=== PATIENT | male | born 1950 | race Caucasian/White ===

== ENCOUNTER 2018-07-12 21:39 | Emergency (ER) | payer OTHER, BC ==
--- NOTE | 2018-07-12 21:49 | PDOC ---
History of Present Illness - History of Present Illness Initial Comments: 07/12/18 22:53 Patient is a 67 year old male with a significant past medical history of HTN, recurrent kidney stones, type 2 diabetes, osteo arthritis, who presents to the ED with complaints of left flank pain that began yesterday morning. Patient reports left flank pain feels similar to past experiences of kidney stones. He reports being unable to urinate since this morning, stating he attempted and only a few drops of urine came out which he states has not happened before. Denies chest pain, Sob. Denies nausea, vomiting. Denies fevers, chills. Denies contact with sick individuals, out of state travelling. Denies constipation, diarrhea. Denies dysuria, hematuria. Denies trauma to affected area. Denies any other symptoms. Allergies: None Social history: No smoking. No alcohol. No illicit drugs. Surgical history: None PMD: None. Adult ROS General: No fevers or chills, no weakness, no weight loss HEENT: No change in vision. No sore throat, No ear pain Cardiovascular: No chest pain or shortness of breath Respiratory:No cough, or wheezing. Gastrointestinal: No nausea, vomiting, diarrhea or constipation, No rectal bleeding Genitourinary: +urinary retention. No dysuria, hematuria, or frequency Musculoskeletal: +Left flank pain. No joint or muscle pain or swelling Neurologic: No headache, vertigo, dizziness or loss of consciousness Psychiatric: No depression Skin: No rashes or easy bruising Endocrine: No increased thirst or abnormal weight change Allergic: No skin or latex allergy All other systems reviewed and normal Basic PE GENERAL: The patient is awake, alert, and fully oriented, in no acute distress. HEAD: Normal with no signs of trauma. EYES: Pupils equal, round and reactive to light, extraocular movements intact, sclera anicteric, conjunctiva clear. EXTREMITIES: Normal range of motion, no edema. GENITOURINARY: Palpable distended bladder. NEUROLOGICAL: Normal speech, normal gait. PSYCH: Normal mood, normal affect. SKIN: Warm, Dry, normal turgor, no rashes or lesions noted. <Arcadio Ibrahim - Last Filed: 07/12/18 22:52> - General History Source: Patient Exam Limitations: No Limitations - History of Present Illness Initial Comments: A portion of this note was documented by scribe services under my direction. I have reviewed the details of the note, within reason, and agree with the documentation with the following case summary and management plan written by me. Patient treated in the ED. Nursing notes are reviewed and incorporated into the medical decision-making. Vital signs reviewed. Medical decision making this is an 59-year-old male with right flank pain and history of renal stones in the past. Patient also is in urinary retention is not urinated since earlier this morning. Workup initiated including CBC, comp, urine, urine culture and CT scan of the abdomen and pelvis. CT scan did show some hydroureter however no stone so still may have recently passed or there was also some abnormalities of some bladder wall thickening. Patient was given a copy of his CAT scan and told it is very important that he followed up with his urologist. A Machado catheter was placed with some difficulty and the bladder was drained there was approximately 800 mL of urine in the bladder. The urinalysis did show likely mild infection however given the amount of instrumentation I also am starting patient on some Cipro and a prescription and was sent to his pharmacy first dose was given in the ED Patient discharged home with a leg bag to follow-up with his urologist 07/13/18 00:13 <Kash Fenton I - Last Filed: 07/13/18 00:15> - General Chief Complaint: Pain, Acute Stated Complaint: KIDNEY STONES/UNABLE TO URINATE Time Seen by Provider: 07/12/18 21:43 Past History <Arcadio Ibrahim - Last Filed: 07/12/18 22:52> - Past Medical History Anemia: No Asthma: No Cancer: No Cardiac Disorders: No CVA: No COPD: No CHF: No Dementia: No Diabetes: Yes (iddm) GI Disorders: No Disorders: No HTN: No Hypercholesterolemia: No Kidney Stones: Yes Liver Disease: No Seizures: No Thyroid Disease: No - Surgical History Abdominal Surgery: No Appendectomy: No Cardiac Surgery: No Cholecystectomy: No Lung Surgery: No Neurologic Surgery: No Orthopedic Surgery: No - Immunization History Immunization Up to Date: Yes - Suicide/Smoking/Psychosocial Hx Smoking History: Never smoked Have you smoked in the past 12 months: No Number of Cigarettes Smoked Daily: 0 Cigars Per Day: 0 Hx Alcohol Use: No Drug/Substance Use Hx: No Substance Use Type: None Hx Substance Use Treatment: No <Kash Fenton I - Last Filed: 07/13/18 00:15> - Past Medical History Allergies/Adverse Reactions: Allergies Allergy/AdvReac Type Severity Reaction Status Date / Time No Known Allergies Allergy Verified 07/12/18 21:45 Home Medications: Ambulatory Orders Insulin Detemir [Levemir VIAL -] 44 units SQ DAILY 07/08/13 Meloxicam 15 mg PO DAILY PRN 01/09/16 Ciprofloxacin HCl [Cipro] 500 mg PO BID #14 tablet 07/13/18 ED Treatment Course - LABORATORY CBC & Chemistry Diagram: 07/12/18 22:23 07/12/18 22:23 - ADDITIONAL ORDERS Additional order review: Laboratory Results 07/12/18 22:23 Urine Color Yellow Urine Appearance Clear Urine pH 5.0 Ur Specific [place] 1.020 Urine Protein Negative Urine Glucose (UA) 3+ H Urine Ketones Negative Urine Blood 3+ H Urine Nitrite Negative Urine Bilirubin Negative Urine Urobilinogen 0.2 Ur Leukocyte Esterase 1+ H Urine RBC 40-60 Urine WBC 5-10 Ur Epithelial Cells 1+ Urine Bacteria 1+ 07/12/18 22:23 RBC 5.29 MCV 88.0 MCHC 33.9 RDW 12.1 MPV 9.2 Neutrophils % 71.6 Lymphocytes % 20.0 Monocytes % 6.0 Eosinophils % 2.1 Basophils % 0.3 - Medications Given in the ED: ED Medications Discontinued Medications Generic Name Dose Route Start Last Admin Trade Name Freq PRN Reason Stop Dose Admin Sodium Chloride 1,000 mls @ 1,000 mls/hr 07/12/18 21:51 07/12/18 22:19 Normal Saline - IV 07/12/18 22:50 1,000 mls/hr .Q1H ONE Administration Ketorolac Tromethamine 30 mg 07/12/18 21:51 07/12/18 22:20 Toradol Injection - IVPUSH 07/12/18 21:52 30 mg ONCE ONE Administration <Arcadio Ibrahim - Last Filed: 07/12/18 22:52> - LABORATORY CBC & Chemistry Diagram: 07/12/18 22:23 07/12/18 22:23 <Kash Fenton I - Last Filed: 07/13/18 00:15> *DC/Admit/Observation/Transfer - Attestations Scribe Attestion: 07/12/18 22:53 Documentation prepared by Arcadio Ibrahim, acting as medical communication specialist for Kash Fenton MD. <Arcadio Ibrahim - Last Filed: 07/12/18 22:52> - Discharge Dispostion Decision to Admit order: No <Kash Fenton I - Last Filed: 07/13/18 00:15> Diagnosis at time of Disposition: Hydroureter, Urinary retention - Discharge Dispostion Disposition: HOME Condition at time of disposition: Stable - Prescriptions Prescriptions: Ciprofloxacin HCl [Cipro] 500 mg PO BID #14 tablet - Referrals Referrals: Jimmy Alamo MD [Staff Physician] - - Patient Instructions Additional Instructions: It is important that you leave the catheter in until you see your urologist.. Your CAT scan was negative for any kidney stones however there is evidence of a possible recently passed kidney stone. Take a copy of her CAT scan with you when you go to see the urologist as there is some abnormalities on it that the urologist should be aware of. Take Cipro 1 tablet twice a day for 7 days to prevent infection. Return to the emergency department immediately with ANY new, persistent or worsening symptoms. Continue any medications as previously prescribed by your physician. You should follow up with your primary doctor as soon as possible regarding today's emergency department visit. . Please make sure your doctor reviews the results of your emergency evaluation. Thank you for coming to the Emergency Department today for your care. It was a pleasure to see you today. Please note that your evaluation is INCOMPLETE until you follow-up with your doctor.
[2018-07-12] MEDS ORDERED: SODIUM CHLORIDE 1,000 ML IV ONE (21:51)
[2018-07-12] MEDS ORDERED: KETOROLAC TROMETHAMINE 30 MG/1 ML VIAL IVPUSH ONE (21:51)
[2018-07-12] MEDS ORDERED: KETOROLAC TROMETHAMINE 30 MG/1 ML VIAL ONE (22:12)
[2018-07-12 22:41] LABS: URINE APPEARANCE Clear; URINE BILIRUBIN Negative (NEGATIVE); URINE COLOR Yellow; URINE GLUCOSE (UA) 3+ (NEGATIVE); URINE KETONE Negative (NEGATIVE); URINE LEUK ESTERASE 1+ (NEGATIVE); URINE NITRITE Negative (NEGATIVE); URINE PROTEIN Negative (NEGATIVE); URINE UROBILINOGEN 0.2 (0.2-1.0)
[2018-07-12 22:46] LABS: BASO % 0.3 % (0-2.0); EOS % 2.1 % (0-4.5); HEMATOCRIT 46.6 % (35.4-49); HEMOGLOBIN 15.8 GM/dl (11.7-16.9); MCH 29.8 pg (25.7-33.7); MCHC 33.9 g/dl (32.0-35.9); MEAN PLT VOLUME 9.2 fl (7.5-11.1); NEUT % 71.6 % (42.8-82.8); PLATELET COUNT 235 K/MM3 (134-434); RBC 5.29 M/mm3 (4.00-5.60); RDW 12.1 % (11.9-15.9); WHITE BLOOD COUNT 10.3 K/mm3 (4.0-10.8)
[2018-07-12 22:47] LABS: EPI CELLS 1+ /HPF; URINE BACTERIA 1+ /hpf (NEGATIVE); URINE RBC 40-60 /hpf (0-3)
[2018-07-12 23:00] LABS: ALBUMIN 4.1 g/dl (3.5-5.0); ALK PHOS 69 U/L (32-92); ANION GAP 6 MMOL/L (8-16); BLOOD UREA NITROGEN 32 mg/dl (7-18); CALCIUM 8.7 mg/dl (8.4-10.2); CHLORIDE 103 mmol/L (98-107); CO2 23 mmol/L (22-28); CREATININE 1.2 mg/dl (0.6-1.3); GLUCOSE,RANDOM 233 mg/dl (74-106); POTASSIUM 3.9 mmol/L (3.5-5.1); SGOT/AST 16 U/L (10-42); SGPT/ALT 14 U/L (10-40); SODIUM 132 mmol/L (136-145); TOT PROT 7.3 g/dl (6.4-8.3)
[2018-07-12 23:39] VITALS: BP 145/92; PULSE 93; TEMP 97.8; BMI 26.4
[2018-07-12] MEDS ORDERED: LIDOCAINE HCL 2% JELLY 10 ML CARTRIDGE ONE (23:48)
[2018-07-13] MEDS ORDERED: CIPROFLOXACIN 500 MG TABLET (RESTRICTED TO ID) PO ONE (00:03)
[2018-07-13] MEDS ORDERED: CIPROFLOXACIN 250 MG TABLET (RESTRICTED TO ID) PO ONE (00:09)
== END 2018-07-13 00:22 | disposition home or self-care (01) ==
LOC: FER 21:39
PROC: 0T9B70Z Drainage of Bladder with Drainage Device, Via Natural or Artificial Opening (ICD-10-PCS; principal; 2018-07-12)
PROC: 3E0333Z Introduction of Anti-inflammatory into Peripheral Vein, Percutaneous Approach (ICD-10-PCS; 2018-07-12)
PROC: 3E0337Z Introduction of Electrolytic and Water Balance Substance into Peripheral Vein, Percutaneous Approach (ICD-10-PCS; 2018-07-12)
DX: N13.4 Hydroureter (principal); R33.9 Retention of urine, unspecified
CPT/HCPCS: 36415; 51702; 74176-TC; 80053; 81003; 81015; 85025; 87086; 96361; 96374; 99281-25; J7030

== ENCOUNTER 2018-10-27 12:00 | Emergency (ER) | payer OTHER, BC ==
--- NOTE | 2018-10-27 12:03 | PDOC ---
History of Present Illness - General Chief Complaint: Back Pain Stated Complaint: RIGHT SIDED BACK PAIN - History of Present Illness Initial Comments: The pt is a 68M w/ a history of HTN, recurrent nephrolithiasis, T2DM, OA who presents for 2 days of R sided low back/flank pain. The pain is crampy/sharp, now constant since 829, non-radiating, not made better or worse by anything he can identify. Pt reports possible hematuria last night. Denies fevers/chills, dysuria, abdominal pain, N/V/C/D. He has not tried taking anything for his pain. 10/27/18 12:04 Past History - Past Medical History Allergies/Adverse Reactions: Allergies Allergy/AdvReac Type Severity Reaction Status Date / Time No Known Allergies Allergy Verified 10/27/18 12:01 Home Medications: Ambulatory Orders Meloxicam 15 mg PO DAILY PRN 01/09/16 Atorvastatin Ca [Lipitor] mg PO HS 10/27/18 Insulin (Novolog 70/30) [Novolog Mix 70/30 Vial] 14 units SQ HS 10/27/18 Insulin (Novolog 70/30) [Novolog Mix 70/30 Vial] 20 units SQ AM 10/27/18 Metformin HCl [Glucophage] 1,000 mg PO DAILY 10/27/18 Tamsulosin HCl 0.4 mg PO DAILY 3 Days #3 cap.er.24h 10/27/18 Anemia: No Asthma: No Cancer: No Cardiac Disorders: No CVA: No COPD: No CHF: No Dementia: No Diabetes: Yes (iddm) GI Disorders: No Disorders: No HTN: No Hypercholesterolemia: No Kidney Stones: Yes Liver Disease: No Seizures: No Thyroid Disease: No - Surgical History Abdominal Surgery: No Appendectomy: No Cardiac Surgery: No Cholecystectomy: No Lung Surgery: No Neurologic Surgery: No Orthopedic Surgery: No - Immunization History Immunization Up to Date: Yes - Suicide/Smoking/Psychosocial Hx Smoking History: Never smoked Have you smoked in the past 12 months: No Number of Cigarettes Smoked Daily: 0 Cigars Per Day: 0 Hx Alcohol Use: No Drug/Substance Use Hx: No Substance Use Type: None Hx Substance Use Treatment: No Review of Systems - Review of Systems Able to Perform ROS?: Yes Comments:: GENERAL/CONSTITUTIONAL: No fever or chills. No weakness HEAD, EYES, EARS, NOSE AND THROAT: No change in vision or hearing. No sore throat CARDIOVASCULAR: No chest pain or shortness of breath RESPIRATORY: Denies cough, hemoptysis GASTROINTESTINAL: No nausea, vomiting, diarrhea or constipation MUSCULOSKELETAL: +chronic BLE OA and chronic back pain SKIN: No rash NEUROLOGIC: No headache, loss of consciousness, or change in strength/sensation ALLERGIC/IMMUNOLOGIC: No hives or skin allergy 10/27/18 12:03 Is the patient limited [place] proficient: No *Physical Exam - Vital Signs Vital Signs Temp Pulse Resp BP Pulse Ox 98.3 F 78 18 174/99 H 100 10/27/18 12:00 10/27/18 12:00 10/27/18 12:00 10/27/18 12:00 10/27/18 12:00 10/27/18 12:34 - Physical Exam Comments: GENERAL: Awake, alert, and oriented to person/place/time, in no acute distress HEAD: No signs of trauma, normocephalic, atraumatic EYES: PERRLA, EOMI, sclera anicteric, conjunctiva clear ENT: Hearing grossly normal, nares patent, oropharynx clear without exudates. Moist mucosa LUNGS: No distress, speaks full sentences, clear to auscultation bilaterally HEART: Regular rate and rhythm, normal S1 and S2, no murmurs appreciated, peripheral pulses normal and equal bilaterally ABDOMEN: Soft, RLQ referred tenderness to back, normoactive bowel sounds. No guarding, no rebound EXTREMITIES: Normal inspection, Normal range of motion, no edema. No clubbing or cyanosis NEUROLOGICAL: Cranial nerves II through XII grossly intact. Normal speech, normal gait, no focal sensorimotor deficits SKIN: Warm, Dry 10/27/18 12:03 ED Treatment Course - LABORATORY CBC & Chemistry Diagram: 10/27/18 12:32 10/27/18 12:32 Medical Decision Making - Medical Decision Making The pt is a 68M w/ a history of HTN, OA, T2DM, and recurrent nephrolithiasis who presents for evaluation of 2 days R back/flank pain concerning for mostly likely nephrolithiasis. ED Course CMP, CBC, UA CT spiral 10/27/18 12:37 No leukocytosis No anemia UA w/ 3+ blood, 1+ LE, Nitrite negative 10/27/18 12:48 CT w/ new R 0.2cm x 0.3cm nephrolithiasis Pt given Rx for Tamsulosin for 3 days Pt will f/u w/ his Urologist Plan for D/C w/ PCP and Urology f/u Discharge instructions and return precautions given Pt in agreement and verbalized understanding Dispo: home 10/27/18 14:32 *DC/Admit/Observation/Transfer Diagnosis at time of Disposition: Right nephrolithiasis - Discharge Dispostion Disposition: HOME Condition at time of disposition: Stable Decision to Admit order: No - Prescriptions Prescriptions: Tamsulosin HCl 0.4 mg PO DAILY 3 Days #3 cap.er.24h - Referrals Referrals: Torres Cope MD [Staff Physician] - - Patient Instructions Printed Discharge Instructions: Kidney Stones -- Adult Additional Instructions: You were seen in the Emergency Department for evaluation of right back/flank pain. You were found to have a right sided kidney stone. Review the handout provided at discharge. A prescription for Tamsulosin was sent to your pharmacy, take it nightly before bed. Return to the Emergency Department if you develop fevers/chills, vomiting, worsening pain, abdominal pain, pain with urination, trouble with urination, worsening symptoms, or any new/concerning symptoms. For pain, you may take Ibuprofen 600mg every 6 hours as needed. - Post Discharge Activity
[2018-10-27 12:12] VITALS: TEMP 98.3; BMI 26.3
[2018-10-27] MEDS ORDERED: IBUPROFEN 600 MG TABLET (FP) PO ONE ×2 (12:23→12:33)
[2018-10-27 12:41] LABS: URINE APPEARANCE Slightly; URINE BILIRUBIN Negative (NEGATIVE); URINE COLOR Yellow; URINE GLUCOSE (UA) Negative (NEGATIVE); URINE KETONE Negative (NEGATIVE); URINE LEUK ESTERASE 1+ (NEGATIVE); URINE NITRITE Negative (NEGATIVE); URINE PROTEIN Trace (NEGATIVE); URINE UROBILINOGEN 0.2 (0.2-1.0)
[2018-10-27 12:43] LABS: BASO % 0.5 % (0-2.0); EOS % 2.6 % (0-4.5); HEMATOCRIT 47.5 % (35.4-49); HEMOGLOBIN 15.5 GM/dl (11.7-16.9); LYMPH % 21.4 % (8-40); MCH 28.4 pg (25.7-33.7); MCHC 32.6 g/dl (32.0-35.9); MEAN CELL VOLUME 87.2 fl (80-96); MEAN PLT VOLUME 8.7 fl (7.5-11.1); MONO % 5.4 % (3.8-10.2); NEUT % 70.1 % (42.8-82.8); PLATELET COUNT 230 K/MM3 (134-434); RBC 5.44 M/mm3 (4.00-5.60); RDW 12.9 % (11.9-15.9); WHITE BLOOD COUNT 7.4 K/mm3 (4.0-10.8)
[2018-10-27 12:49] LABS: URINE BACTERIA 4+ /hpf (NEGATIVE); URINE RBC 20-40 /hpf (0-3); URINE WBC 20-40 (0-2)
--- NOTE | 2018-10-27 13:32 | PDOC ---
Attending Attestation - Resident Resident Name: NataliaangelaTodd - ED Attending Attestation I have performed the following: I have examined & evaluated the patient, The case was reviewed & discussed with the resident, I agree w/resident's findings & plan, Exceptions are as noted - HPI HPI: 10/27/18 15:21 Reviewed Residents HPI - Physicial Exam PE: 10/27/18 15:21 Reviewed Residents PE - Medical Decision Making 10/27/18 15:21 68 years old past medical history significant for diabetes presents emergency Department with history examination consistent for renal colic Given age labs and a CAT scan was ordered which demonstrated a 3 mm right distal ureter stone Patient comfortable tolerating fluids we'll discharge home with pain medications Flomax urology follow-up Find his, need for follow-up and strict return instructions discussed with patient.
[2018-10-27 13:34] LABS: ALBUMIN 4.2 g/dl (3.4-5.0); ALK PHOS 83 U/L (45-117); ANION GAP 7 MMOL/L (8-16); BILIRUBIN,TOTAL 1.1 mg/dl (0.2-1); BLOOD UREA NITROGEN 28 mg/dl (7-18); CHLORIDE 103 mmol/L (98-107); CO2 22 mmol/L (21-32); CREATININE 1.4 mg/dl (0.55-1.3); POTASSIUM 4.7 mmol/L (3.5-5.1); SGOT/AST 17 U/L (15-37); SGPT/ALT 15 U/L (13-61); SODIUM 132 mmol/L (136-145); TOT PROT 7.6 g/dl (6.4-8.2)
[2018-10-27 13:46] LABS: GLUCOSE,RANDOM 318 mg/dl (74-106)
[2018-10-27] MEDS ORDERED: TAMSULOSIN HCL 0.4 MG CAP PO ONE (14:17)
[2018-10-27 14:49] VITALS: BP 156/77; PULSE 71
== END 2018-10-27 14:35 | disposition home or self-care (01) ==
LOC: FER 12:00
DX: N20.0 Calculus of kidney (principal); I10 Essential (primary) hypertension; E11.9 Type 2 diabetes mellitus without complications; M19.90 Unspecified osteoarthritis, unspecified site; Z79.4 Long term (current) use of insulin
CPT/HCPCS: 36415; 74176-TC; 80053; 81003; 81015; 85025; 87086; 99285-25

== ENCOUNTER 2018-10-30 18:30 | Emergency (ER) | payer OTHER, BC ==
[2018-10-30 18:36] VITALS: BP 159/75; PULSE 74; TEMP 97.6; BMI 26.3
--- NOTE | 2018-10-30 18:54 | PDOC ---
History of Present Illness - General Chief Complaint: Urinary Problem Stated Complaint: "CAN'T URINATE" Time Seen by Provider: 10/30/18 18:43 History Source: Patient Exam Limitations: No Limitations - History of Present Illness Initial Comments: 10/30/18 19:07 HPI 68 YOM with a PMH of HTN, recurrent nephrolithiasis, T2DM, and OA presenting with urinary retention today. Patient was seen in this ED on 10/[address], which showed a 2mm distal ureteral kidney stone, prescribed tamsulosin, and told to follow up with urology. He states he may have passed the stone two days ago and notes the pain has resolved. Patient states he has been experiencing urinary retention and urgency today. Patient reports having similar urinary retention in the past with his recurrent nephrolithiasis. Denies fever, chills, chest pain, SOB, palpitation, dizziness, weakness, N, V, D , abdominal pain, bowel problems, leg swelling, No sick contacts or travel. No new changes in medications. Allergies: NKA Past Medical History: HTN, recurrent nephrolithiasis, T2DM, and OA Social history: Lives with family. No smoking. No alcohol. No illicit drugs. Surgical history: None reported. Review of systems Constitutional: no fevers or chills. HEENT: no headache or dizziness. No congestion. No visual/hearing disturbances. CVS: no cp or syncope. Resp: no sob. No cough. Gastrointestinal: no abdominal pain, nausea or vomiting. Genitourinary: no hematuria. (+) urinary retention. MUSCULOSKELETAL: No joint pain and swelling. No neck or back pain. SKIN: no redness or skin changes, no discharge, no rash. No wounds. Hematologic: no easy bruising/bleeding. NEUROLOGIC: No headache, dizziness, LOC or altered mental status. No weakness, numbness or tingling. Allergic/Immunologic: no allergies All other systems reviewed and negative, or as documented in HPI. Physical exam: General: Well appearing, awake and alert, NAD. HEENT: NCAT, PERRL, EOMI, clear conjunctiva, anicteric, moist mucus membranes, clear oropharynx, no oral lesions.. Neck: neck supple, FROM Resp: CTAB, normal and even respirations, no respiratory distress CVS: RRR, no murmurs, 2+ peripheral pulses throughout, no peripheral edema Abdomen: soft, NTND, no peritoneal signs. (+) Mild suprapubic tenderness. Back: nontender, normal inspection and ROM MSK: no edema, ROTHMAN x4, ROM intact. No clubbing or cyanosis. normal bulk and tone. Neuro: alert, oriented appropriately; no focal neurologic deficits Skin: warm and well perfused, cap refill <2 sec, normal color Past History - Past Medical History Allergies/Adverse Reactions: Allergies Allergy/AdvReac Type Severity Reaction Status Date / Time No Known Allergies Allergy Verified 10/30/18 18:32 Home Medications: Ambulatory Orders Meloxicam 15 mg PO DAILY PRN 01/09/16 Atorvastatin Ca [Lipitor] mg PO HS 10/27/18 Insulin (Novolog 70/30) [Novolog Mix 70/30 Vial] 14 units SQ HS 10/27/18 Insulin (Novolog 70/30) [Novolog Mix 70/30 Vial] 20 units SQ AM 10/27/18 Metformin HCl [Glucophage] 1,000 mg PO DAILY 10/27/18 Tamsulosin HCl 0.4 mg PO DAILY 3 Days #3 cap.er.24h 10/27/18 Ciprofloxacin [Cipro (Restricted To Id)] 500 mg PO Q12H #20 tablet 10/30/18 Anemia: No Asthma: No Cancer: No Cardiac Disorders: No CVA: No COPD: No CHF: No Dementia: No Diabetes: Yes (iddm) GI Disorders: No Disorders: Yes (enlarged prostate) HTN: No Hypercholesterolemia: No Kidney Stones: Yes (lithotripsy) Liver Disease: No Seizures: No Thyroid Disease: No Other medical history: arthritis - Surgical History Abdominal Surgery: Yes (hernia sx) Appendectomy: No Cardiac Surgery: No Cholecystectomy: No Lung Surgery: No Neurologic Surgery: No Orthopedic Surgery: No - Immunization History Immunization Up to Date: Yes - Suicide/Smoking/Psychosocial Hx Smoking History: Never smoked Have you smoked in the past 12 months: No Number of Cigarettes Smoked Daily: 0 Cigars Per Day: 0 Information on smoking cessation initiated: No Hx Alcohol Use: No Drug/Substance Use Hx: No Substance Use Type: None Hx Substance Use Treatment: No *Physical Exam - Vital Signs Last Vital Signs Temp Pulse Resp BP Pulse Ox 97.6 F 74 18 159/75 99 10/30/18 18:30 10/30/18 18:30 10/30/18 18:30 10/30/18 18:30 10/30/18 18:30 Moderate Sedation - Procedure Monitoring Vital Signs: Procedure Monitoring Vital Signs Temperature 97.6 F 10/30/18 18:30 Pulse Rate 74 10/30/18 18:30 Respiratory Rate 18 10/30/18 18:30 Blood Pressure 159/75 10/30/18 18:30 O2 Sat by Pulse Oximetry (%) 99 10/30/18 18:30 ED Treatment Course - LABORATORY CBC & Chemistry Diagram: 10/30/18 19:45 10/30/18 19:45 Medical Decision Making - Medical Decision Making 10/30/18 18:56 hpi as documented VS reviewed wnl. ddx. urinary retention, kidney stone, infection unable to urinate despite attempts. bladder scan hinojosa catheter UA and culture to check for infection ultrasound kidney/bladder to check for residual hydro, given recent kidney stone. urology followup s/o overnight attending pending results and catheter placement and ultimate dispo. 10/31/18 14:14 *DC/Admit/Observation/Transfer Diagnosis at time of Disposition: Cystitis, Urinary retention - Discharge Dispostion Disposition: HOME Condition at time of disposition: Stable - Prescriptions Prescriptions: Ciprofloxacin [Cipro (Restricted To Id)] 500 mg PO Q12H #20 tablet - Referrals - Patient Instructions Additional Instructions: Take the ciprofloxacin 1 tablet twice a day for 10 days this is for the urinary tract infection. Call your urologist in the morning and get an appointment to follow-up tomorrow or the next day for reevaluation. If you develop any fevers, additional back or flank pain return the emergency Department as she will likely need to be admitted for IV antibiotics. Return to the emergency department immediately with ANY new, persistent or worsening symptoms. Continue any medications as previously prescribed by your physician. You should follow up with your primary doctor as soon as possible regarding today's emergency department visit. . Please make sure your doctor reviews the results of your emergency evaluation. Thank you for coming to the Emergency Department today for your care. It was a pleasure to see you today. Please note that your evaluation is INCOMPLETE until you follow-up with your doctor. - Post Discharge Activity
[2018-10-30] MEDS ORDERED: LIDOCAINE HCL 2% JELLY 10 ML CARTRIDGE ONE (19:02)
[2018-10-30] MEDS ORDERED: LIDOCAINE HCL 2% JELLY 10 ML CARTRIDGE UR ONE (19:02)
[2018-10-30 19:29] LABS: URINE COLOR YELLOW
[2018-10-30 19:30] LABS: PH,URINE 5.5 (4.5-8); URINE APPEARANCE CLOUDY; URINE BILIRUBIN NEGATIVE (NEGATIVE); URINE GLUCOSE (UA) 3+ (NEGATIVE); URINE KETONE NEGATIVE (NEGATIVE); URINE NITRITE NEGATIVE (NEGATIVE); URINE PROTEIN NEGATIVE (NEGATIVE); URINE UROBILINOGEN 0.2 (0.2-1.0)
[2018-10-30 19:31] LABS: URINE LEUK ESTERASE 2+ (NEGATIVE)
[2018-10-30 19:32] LABS: URINE BACTERIA 4+ /hpf (NEGATIVE); URINE RBC 20-30 /hpf (0-3); URINE WBC 40-60 (0-2)
[2018-10-30] MEDS ORDERED: CEFTRIAXONE 1,000 MG in DEXTROSE 5%-WATER - 50 ML IVPB ONE (19:58)
[2018-10-30] MEDS ORDERED: cefTRIAXone SODIUM 1 GM VIAL ONE (19:58)
[2018-10-30] MEDS ORDERED: SODIUM CHLORIDE 1,000 ML IV ONE (20:04)
[2018-10-30 20:11] LABS: BASO % 0.6 % (0-2.0); EOS % 3.1 % (0-4.5); HEMATOCRIT 40.6 % (35.4-49); HEMOGLOBIN 13.5 GM/dl (11.7-16.9); LYMPH % 23.1 % (8-40); MCH 28.8 pg (25.7-33.7); MCHC 33.3 g/dl (32.0-35.9); MEAN CELL VOLUME 86.4 fl (80-96); MEAN PLT VOLUME 8.7 fl (7.5-11.1); MONO % 7.3 % (3.8-10.2); NEUT % 65.9 % (42.8-82.8); PLATELET COUNT 225 K/MM3 (134-434); RDW 12.8 % (11.9-15.9); WHITE BLOOD COUNT 6.3 K/mm3 (4.0-10.8)
[2018-10-30 20:25] LABS: ALBUMIN 3.4 g/dl (3.4-5.0); ALK PHOS 62 U/L (45-117); ANION GAP 7 MMOL/L (8-16); BILIRUBIN,TOTAL 0.6 mg/dl (0.2-1); BLOOD UREA NITROGEN 25 mg/dl (7-18); CALCIUM 8.7 mg/dl (8.5-10); CHLORIDE 105 mmol/L (98-107); CO2 23 mmol/L (21-32); CREATININE 1.2 mg/dl (0.55-1.3); GLUCOSE,RANDOM 151 mg/dl (74-106); POTASSIUM 4.1 mmol/L (3.5-5.1); SGOT/AST 15 U/L (15-37); SGPT/ALT 11 U/L (13-61); SODIUM 135 mmol/L (136-145); TOT PROT 6.6 g/dl (6.4-8.2)
--- NOTE | 2018-10-30 20:57 | PDOC ---
*Physical Exam - Vital Signs Last Vital Signs Temp Pulse Resp BP Pulse Ox 97.6 F 74 18 159/75 99 10/30/18 18:30 10/30/18 18:30 10/30/18 18:30 10/30/18 18:30 10/30/18 18:30 ED Treatment Course - LABORATORY CBC & Chemistry Diagram: 10/30/18 19:45 10/30/18 19:45 - ADDITIONAL ORDERS Additional order review: Laboratory Results 10/30/18 10/30/18 19:45 19:10 Sodium 135 L Potassium 4.1 Chloride 105 Carbon Dioxide 23 Anion Gap 7 L BUN 25 H Creatinine 1.2 Creat Clearance w eGFR 60.03 Random Glucose 151 H Calcium 8.7 Total Bilirubin 0.6 AST 15 ALT 11 L Alkaline Phosphatase 62 D Total Protein 6.6 Albumin 3.4 Urine Color Yellow Urine Appearance Cloudy Urine pH 5.5 Ur Specific [place] 1.025 Urine Protein Negative Urine Glucose (UA) 3+ H Urine Ketones Negative Urine Blood 3+ H Urine Nitrite Negative Urine Bilirubin Negative Urine Urobilinogen 0.2 Ur Leukocyte Esterase 2+ H Urine RBC 20-30 Urine WBC 40-60 Urine Bacteria 4+ 10/30/18 19:45 RBC 4.70 MCV 86.4 MCHC 33.3 RDW 12.8 MPV 8.7 Neutrophils % 65.9 Lymphocytes % 23.1 Monocytes % 7.3 Eosinophils % 3.1 Basophils % 0.6 - Medications Given in the ED: ED Medications Discontinued Medications Generic Name Dose Route Start Last Admin Trade Name Freq PRN Reason Stop Dose Admin Ceftriaxone Sodium 1,000 mg/ 50 mls @ 100 mls/hr 10/30/18 19:58 10/30/18 20: 05 Dextrose IVPB 10/30/18 20:27 100 mls/hr ONCE ONE Administration Lidocaine HCl 10 ml 10/30/18 19:02 10/30/18 19:00 Xylocaine 2% Uro-Jet UR 10/30/18 19:03 10 ml ONCE ONE Administration Progress Note - Progress Note Progress Note: Care of this patient was transferred to me from Dr. lombardi at 1900 hrs. This is a 68-year-old male who had a recent kidney stone that was passed. Patient now came in in urinary retention. A [place] was passed and urinalysis is pending. As orders for a ultrasound of the kidney ureters and bladder to rule out any additional stones or hydronephrosis. 20:00 Patient urinalysis shows a moderate amount of red cells white cells and 4+ bacteria. Patient will be given ceftriaxone IV and discharged home on oral antibiotics if his ultrasound is negative for any additional obstructing stones. 21:00 Patient's CBC and chemistries were unremarkable there is no white count or left shift. Patient's glucose is mildly elevated but otherwise chemistries showed a B UN of 25 and a creatinine of 1.2. Patient given a bolus of IV fluid in the ED Patient discharged home on Cipro and will follow-up with his doctor on Wednesday *DC/Admit/Observation/Transfer Diagnosis at time of Disposition: Cystitis, Urinary retention - Discharge Dispostion Disposition: HOME Condition at time of disposition: Stable Decision to Admit order: No - Prescriptions Prescriptions: Ciprofloxacin [Cipro (Restricted To Id)] 500 mg PO Q12H #20 tablet - Referrals - Patient Instructions Additional Instructions: Take the ciprofloxacin 1 tablet twice a day for 10 days this is for the urinary tract infection. Call your urologist in the morning and get an appointment to follow-up tomorrow or the next day for reevaluation. If you develop any fevers, additional back or flank pain return the emergency Department as she will likely need to be admitted for IV antibiotics. Return to the emergency department immediately with ANY new, persistent or worsening symptoms. Continue any medications as previously prescribed by your physician. You should follow up with your primary doctor as soon as possible regarding today's emergency department visit. . Please make sure your doctor reviews the results of your emergency evaluation. Thank you for coming to the Emergency Department today for your care. It was a pleasure to see you today. Please note that your evaluation is INCOMPLETE until you follow-up with your doctor. - Post Discharge Activity
[2018-10-30] MEDS ORDERED: HYDROmorphone HCL CARPU-JECT 1 MG/1 ML DISP.SYRIN IVPUSH ONE (21:04)
== END 2018-10-30 21:15 | disposition home or self-care (01) ==
LOC: FER 18:30
PROC: 3E03329 Introduction of Other Anti-infective into Peripheral Vein, Percutaneous Approach (ICD-10-PCS; principal; 2018-10-30)
PROC: 3E0337Z Introduction of Electrolytic and Water Balance Substance into Peripheral Vein, Percutaneous Approach (ICD-10-PCS; 2018-10-30)
DX: N30.90 Cystitis, unspecified without hematuria (principal); R33.9 Retention of urine, unspecified; E11.9 Type 2 diabetes mellitus without complications; N40.0 Benign prostatic hyperplasia without lower urinary tract symptoms
CPT/HCPCS: 36415; 76775-TC; 76856-TC; 80053; 81003; 81015; 85025; 87040; 87086; 99285-25; J7030

== ENCOUNTER 2021-01-20 16:30 | Inpatient (IN) | payer OTHER, BC ==
[2021-01-20 17:31] LABS: BASO % 0.6 % (0-2.0); EOS % 0.2 % (0-4.5); HEMATOCRIT 41.4 % (35.4-49); HEMOGLOBIN 13.9 GM/dl (11.7-16.9); LYMPH % 7.1 % (8-40); MCH 29.3 pg (25.7-33.7); MCHC 33.7 g/dl (32.0-35.9); MEAN CELL VOLUME 87.1 fl (80-96); MONO % 4.5 % (3.8-10.2); NEUT % 87.6 % (42.8-82.8); PLATELET COUNT 267 K/MM3 (134-434); RBC 4.75 M/mm3 (4.00-5.60); RDW 13.1 % (11.9-15.9); WHITE BLOOD COUNT 13.2 K/mm3 (4.0-10.8)
[2021-01-20 17:44] LABS: ALBUMIN 4.2 g/dl (3.4-5.0); ALK PHOS 77 U/L (45-117); ANION GAP 11 MMOL/L (8-16); BILIRUBIN,TOTAL 0.7 mg/dl (0.2-1); CALCIUM 9.6 mg/dl (8.5-10); CHLORIDE 102 mmol/L (98-107); CO2 21 mmol/L (21-32); CREATININE 3.1 mg/dl (0.55-1.3); GLUCOSE,RANDOM 247 mg/dl (74-106); SGOT/AST 18 U/L (15-37); SGPT/ALT 18 U/L (13-61); SODIUM 134 mmol/L (136-145); TOT PROT 7.1 g/dl (6.4-8.2)
[2021-01-20] MEDS ORDERED: SODIUM CHLORIDE 0.9% 500 ML INFUS.BAG IV ONE (17:53)
[2021-01-20] MEDS ORDERED: LIDOCAINE HCL 2% JELLY (5 ML/TUBE) ONE ×2 (18:42→18:52)
[2021-01-20] MEDS ORDERED: SODIUM CHLORIDE 1,000 ML IV STA (21:37)
[2021-01-20] MEDS ORDERED: SODIUM CHLORIDE 1,000 ML IV SCH (23:30)
[2021-01-20 23:44] VITALS: BMI 24.6
[2021-01-21] MEDS: INSULIN SLIDING SCALE (NOVOLOG) 1 VIAL SQ SCH ×4 (06:40→21:41)
[2021-01-21 07:56] LABS: BASO % 0.7 % (0-2.0); EOS % 3.1 % (0-4.5); HEMATOCRIT 37.3 % (35.4-49); HEMOGLOBIN 12.6 GM/dl (11.7-16.9); LYMPH % 23.1 % (8-40); MCH 29.3 pg (25.7-33.7); MCHC 33.9 g/dl (32.0-35.9); MEAN CELL VOLUME 86.3 fl (80-96); MEAN PLT VOLUME 8.9 fl (7.5-11.1); MONO % 7.3 % (3.8-10.2); NEUT % 65.8 % (42.8-82.8); PLATELET COUNT 207 K/MM3 (134-434); RBC 4.32 M/mm3 (4.00-5.60); RDW 12.8 % (11.9-15.9); WHITE BLOOD COUNT 7.6 K/mm3 (4.0-10.8)
[2021-01-21 08:01] LABS: ALBUMIN 3.3 g/dl (3.4-5.0); CALCIUM 8.5 mg/dl (8.5-10); CREATININE 1.8 mg/dl (0.55-1.3); MAGNESIUM 1.7 mg/dL (1.8-2.4)
[2021-01-21] MEDS: TAMSULOSIN HCL 0.4 MG CAP PO SCH (08:49)
[2021-01-21] MEDS ORDERED: MAGNESIUM OXIDE 400 MG TABLET (FP) PO ONE (09:20)
[2021-01-21] MEDS ORDERED: MAGNESIUM SULF 50% (8.12 MEQ/2 ML-1 GM VIAL) IVPB ONE (09:26)
[2021-01-21] MEDS ORDERED: SODIUM CHLORIDE 0.45% 1,000 ML IV SCH (09:30)
[2021-01-21] MEDS ORDERED: MAGNESIUM SULFATE IN WATER 2 GM/50 ML IVPB IVPB ONE (10:00)
[2021-01-21] MEDS: ASPIRIN 81 MG CHEWABLE TABLETS PO SCH (12:51)
[2021-01-21 13:28] LABS: EPITHELIAL CELLS RARE /hpf
[2021-01-21] MEDS: HEPARIN NA (PORCINE) 5,000 UNITS/ML 1ML VIAL SQ SCH ×2 (13:50→21:38)
[2021-01-21] MEDS ORDERED: ATORVASTATIN CA 10 MG TABLET (FP) PO SCH (22:00)
[2021-01-22 06:06] VITALS: TEMP 98
[2021-01-22] MEDS: HEPARIN NA (PORCINE) 5,000 UNITS/ML 1ML VIAL SQ SCH ×2 (06:21→13:55)
[2021-01-22] MEDS: INSULIN SLIDING SCALE (NOVOLOG) 1 VIAL SQ SCH (06:22)
[2021-01-22 07:37] LABS: CALCIUM 8.4 mg/dl (8.5-10); CREATININE 1.3 mg/dl (0.55-1.3); MAGNESIUM 1.7 mg/dL (1.8-2.4)
[2021-01-22] MEDS ORDERED: MAGNESIUM OXIDE 400 MG TABLET (FP) PO ONE (08:00)
[2021-01-22] MEDS ORDERED: MAGNESIUM SULF 50% (8.12 MEQ/2 ML-1 GM VIAL) IVPB ONE (08:22)
[2021-01-22] MEDS ORDERED: REGADENOSON 0.4 MG/5 ML PRE-FILLED SYRINGE IVPUSH ONE ×2 (10:06→10:15)
[2021-01-22] MEDS: TAMSULOSIN HCL 0.4 MG CAP PO SCH (10:10)
[2021-01-22 13:06] VITALS: BP 124/67; PULSE 70
[2021-01-22] MEDS: ASPIRIN 81 MG CHEWABLE TABLETS PO SCH (13:55)
== END 2021-01-22 16:08 | disposition home or self-care (01) | DRG 683 ==
LOC: FER 16:30 → FM/S 22:59
PROVIDERS: ADMIT Internal Medicine; ATTEND Nurse Practitioner Acute Care
DX: N17.9 Acute kidney failure, unspecified (principal); N20.1 Calculus of ureter; N40.0 Benign prostatic hyperplasia without lower urinary tract symptoms; E11.9 Type 2 diabetes mellitus without complications; N20.0 Calculus of kidney; N28.9 Disorder of kidney and ureter, unspecified; E86.0 Dehydration; E78.5 Hyperlipidemia, unspecified; M54.2 Cervicalgia; R68.84 Jaw pain; R33.9 Retention of urine, unspecified
CPT/HCPCS: 36415; 74176-TC; 76775-TC; 78452-TC; 80048; 80053; 81003; 81015; 82550; 82570; 82962; 83735; 84100; 84156; 84300; 84484; 85025; 87040; 87086; 93005; 93017; 93306-TC; 97116-GP; 97161-GP; 99285-25; A9502; C9803; J1644; J2785; U0003; U0005

== ENCOUNTER 2025-02-25 16:59 | Emergency (ER) | payer OTHER, BC ==
[2025-02-25 17:04] VITALS: BP 135/107; PULSE 74; RESP 19; TEMP 98.2
[2025-02-25] MEDS ORDERED: KETOROLAC TROMETHAMINE 30 MG/1 ML VIAL ONE (17:28)
[2025-02-25] MEDS: KETOROLAC TROMETHAMINE 30 MG/1 ML VIAL IM ONE (17:31)
== END 2025-02-25 18:59 | disposition home or self-care (01) ==
LOC: FER 16:59
PROC: 3E0233Z Introduction of Anti-inflammatory into Muscle, Percutaneous Approach (ICD-10-PCS; principal; 2025-02-25)
DX: S42.211A Unspecified displaced fracture of surgical neck of right humerus, initial encounter for closed fracture (principal); W10.8XXA Fall (on) (from) other stairs and steps, initial encounter; Y93.K1 Activity, walking an animal
CPT/HCPCS: 73030-TC-RT-FY; 73060-TC-RT-FY; 99284-25